=== PATIENT | female | born 1935 | race Caucasian/White ===

== ENCOUNTER → 2018-01-17 | Emergency (ER) | payer OTHER ==
[~2018-01-17] VITALS: Ht 152.4 cm; Wt 127.0 kg
[~2018-01-17] MED LIST: ADVAIR 2501 DISK W/1 IH; GLIPIZIDE5 MG PO; METFORMIN HCL500 MG PO; MONOPRIL20 MG PO; NABUMETONE500 MG PO; NORVASC5 MG PO; PERCOCET 5/3251 TAB PO; PROVENTIL3 ML/2.5 M IH; SINGULAIR10 MG PO; SYNTHROID175 MCG PO; TENORMIN25 MG PO; ZITHROMAX500 MG PO
== END | disposition expired ==
LOC: ER 03:33